=== PATIENT | female | born 1990 | race Caucasian/White ===

== ENCOUNTER 2016-12-07 18:41 | Emergency (ER) | payer BC, OTHER ==
[~2016-12-07] VITALS: Ht 157.5 cm; Wt 119.0 kg
[2016-12-07] MEDS ORDERED: ONDANSETRON 2 MG/ML (Z0FRAN) 2 ML VIAL ONE (19:20)
[2016-12-07] MEDS ORDERED: HYDROmorphone 1 MG/ML (DILAUDID) SYRINGE IV PRN (19:25)
[2016-12-07] MEDS ORDERED: SODIUM CHLORIDE FLUSH 10 ML SYR IV PRN (19:25)
[2016-12-07] MEDS ORDERED: SODIUM CHLORIDE FLUSH 3 ML SYR IV PRN (19:25)
[2016-12-07] MEDS ORDERED: ONDANSETRON 2 MG/ML (Z0FRAN) 2 ML VIAL IV ONE ×2 (19:25→20:50)
[2016-12-07 19:57] LABS: BASOPHILS % (AUTO) 0 % (0-2); EOSINOPHILS # (AUTO) 0.1 10^3uL; EOSINOPHILS % (AUTO) 1 % (0-4); LYMPHOCYTES # (AUTO) 2.5 X10^3; MEAN CORPUSCULAR HEMOGLOBIN 27.4 PG (26.0-34.0); MEAN PLATELET VOLUME 8.9 FL (6.0-9.5); MONOCYTES # (AUTO) 0.7 X10^3; MONOCYTES % (AUTO) 5 % (3-11); NEUTROPHILS # (AUTO) 11.6 X10^3; NEUTROPHILS % (AUTO) 78 % (51-67); PLATELET COUNT 409 10^3uL (150-450); WHITE BLOOD COUNT 14.95 10^3uL (4.0-11.0)
[2016-12-07 19:59] LABS: MEAN CORPUSCULAR HGB CONC 35.5 g/dL (31.0-37.0); MEAN CORPUSCULAR VOLUME 77 FL (80-100)
[2016-12-07 20:04] LABS: ANION GAP 21.8 MEQ/L (3-15); CALCULATED IONIZED CALCIUM 3.9 mg/dL (3.8-4.6); TOTAL PROTEIN 9.6 g/dL (6.4-8.5)
--- NOTE | 2016-12-07 20:31 | NUR ---
CALLED LAB TO GET SERUM PREG. RESULTS NOT ON SYSTEM YET. TEST WAS NEG. NOTIFIED RADIOLOGY THAT READY FOR TEST
--- NOTE | 2016-12-07 21:35 | NUR ---
PT SAID PAIN TOLERABLE AND NAUSEA IS BETTER. DECLINES FURTHER PAIN MED AT THIS TIME
[2016-12-07 23:21] LABS: BILIRUBIN,URINE Negative (Negative); CLARITY,URINE Clear; GLUCOSE, URINE (UA) Negative (Negative); LEUKOCYTE ESTERASE ,URINE Negative (Negative); UROBILINOGEN,URINE 0.2 mg/dL (0.2-1.0)
[2016-12-07 23:23] LABS: COLOR,URINE Dark Yellow
[2016-12-07] MEDS ORDERED: ED- ONDANSETRON ODT 4 MG (ZOFRAN) 4 TABLETS/BTL PO ONE (23:30)
[2016-12-07 23:52] VITALS: BP 135/65
== END 2016-12-07 23:53 | disposition home or self-care (01) ==
LOC: ED 18:42
DX: A08.39 Other viral enteritis (principal); E86.0 Dehydration
CPT/HCPCS: 36415; 74020; 80053; 81003; 82150; 83690; 84703; 85025; 87507; 96361; 96374; 96375; 96376; 99284; J1170; J2405; J7030; 99283